=== PATIENT | female | born 1950 | race Two or more races ===

== ENCOUNTER 2024-05-29 12:41 | Inpatient (IN) | payer MEDICARE, OTHER ==
[~2024-05-29] VITALS: Ht 157.5 cm; Wt 67.1 kg
[2024-05-29] MEDS: IV NS 0.9% 1,000 ML BAG IV ONE (13:42)
[2024-05-29 13:46] LABS: CALCIUM, SERUM 9.5 mg/dL (8.5-10.1); CREATININE 0.8 mg/dL (0.6-1.3); POTASSIUM 4.1 mmol/L (3.5-5.1)
[2024-05-29 13:51] LABS: ALBUMIN 4.1 g/dL (3.4-5.0); BILIRUBIN,DIRECT 0.1 mg/dL (0.0-0.2); BILIRUBIN,TOTAL 0.5 mg/dL (0.2-1.0); TOTAL PROTEIN, SERUM 7.7 g/dL (6.4-8.2)
[2024-05-29 13:57] LABS: BASOPHILS % (AUTO) 0.4 % (0.0-2.0); EOSINOPHILS # (AUTO) 0.1 K/uL (0.0-0.7); EOSINOPHILS % (AUTO) 1.6 % (0.0-6.0); HEMATOCRIT 41 % (33-45); HEMOGLOBIN 14.2 g/dL (11.5-14.8); LYMPHOCYTES # (AUTO) 3.5 K/uL (0.8-4.8); LYMPHOCYTES % (AUTO) 52.1 % (20.0-44.0); MEAN CORPUSCULAR HEMOGLOBIN 32 PG (26.0-33.0); MEAN CORPUSCULAR HGB CONC 35 g/dl (31.0-36.0); MEAN CORPUSCULAR VOLUME 92 fL (82-100); MONOCYTES # (AUTO) 0.3 K/uL (0.1-1.30); NEUTROPHILS # (AUTO) 2.7 K/uL (1.8-8.9); NEUTROPHILS % (AUTO) 40.9 % (43.0-81.0); PLATELET COUNT (AUTO) 149 K/uL (150-450); RED BLOOD CELL COUNT(AUTO) 4.42 MIL/uL (4.0-5.2); RED CELL DISTRIBUTION WIDTH 14.1 % (11.5-15.0); WHITE BLOOD COUNT (AUTO) 6.7 K/uL (4.3-11.0)
[2024-05-29] MEDS ORDERED: KETOROLAC TROMETHAMINE 15 MG/ML VIAL ONE (14:35)
[2024-05-29] MEDS: KETOROLAC TROMETHAMINE 15 MG/ML VIAL IV ONE (14:39)
[2024-05-29 15:42] LABS: APPEARANCE,URINE CLEAR (CLEAR); BILIRUBIN,URINE NEGATIVE (NEGATIVE); BLOOD, URINE NEGATIVE Ery/uL (NEGATIVE); COLOR,URINE YELLOW (YELLOW); KETONES,URINE NEGATIVE (NEGATIVE); LEUKOCYTE ESTERASE ,URINE TRACE (NEGATIVE); NITRITE, URINE NEGATIVE (NEGATIVE); PH,URINE 6.5 (5.0-8.0); PROTEIN,URINE NEGATIVE (NEGATIVE); UGLUCOSE NEGATIVE (NEGATIVE); UROBILINOGEN,URINE 0.2 EU/dL (0.2)
[2024-05-29] MEDS ORDERED: ONDANSETRON HCL/PF 4 MG/2 ML VIAL IVP PRN (16:00)
[2024-05-29] MEDS ORDERED: MAGNESIUM HYDROXIDE 30 ML UDC PO PRN (16:00)
[2024-05-29] MEDS ORDERED: Z GUARD REMEDY 4 OZ OINT TP PRN (16:00)
[2024-05-29 16:43] LABS: ADD URINE CULTURE YES; BACTERIA,URINE Many /HPF (None Seen); SQUAMOUS EPITHELIAL CELL,UR Many /HPF (None Seen)
[2024-05-29 16:44] LABS: RBC,URINE 0-2 /HPF (0-2)
[2024-05-29] MEDS ORDERED: CEFTRIAXONE 1GM BAG (ER ONLY) 1 GM/50 ML PIGGYBACK IV ONE (17:30)
[2024-05-29] MEDS: CEFTRIAXONE 1 G in IV D5W 50 ML IV ONE (17:49)
[2024-05-29] MEDS ORDERED: LEVO88TA5 PO (18:49)
[2024-05-29] MEDS ORDERED: LORA-259 PO (18:49)
[2024-05-29] MEDS ORDERED: GABA300C PO (18:49)
[2024-05-29] MEDS ORDERED: RIBO400T PO (18:49)
[2024-05-29] MEDS ORDERED: DONE10TA44 PO (18:49)
[2024-05-29] MEDS ORDERED: MAGN400T26 PO (18:49)
[2024-05-29] MEDS ORDERED: BUPR-54 PO (18:49)
[2024-05-29] MEDS ORDERED: ATOR20TA PO (18:49)
[2024-05-29] MEDS ORDERED: DIVA125T32 PO (18:49)
[2024-05-29] MEDS ORDERED: SOLI10TA7 PO (18:49)
[2024-05-29 21:00] VITALS: BP 118/71; TEMP 97.7; O2SAT 98
[2024-05-29] MEDS: ACETAMINOPHEN 325 MG TABLET PO PRN (21:30)
[2024-05-30] MEDS: LORAZEPAM 1 MG TABLET PO PRN (02:16)
[2024-05-30 06:37] VITALS: BP 105/74; TEMP 97.3; O2SAT 98
[2024-05-30 06:58] LABS: BASOPHILS % (AUTO) 0.3 % (0.0-2.0); EOSINOPHILS # (AUTO) 0.1 K/uL (0.0-0.7); EOSINOPHILS % (AUTO) 2.4 % (0.0-6.0); HEMATOCRIT 37 % (33-45); HEMOGLOBIN 12.5 g/dL (11.5-14.8); LYMPHOCYTES # (AUTO) 2.4 K/uL (0.8-4.8); LYMPHOCYTES % (AUTO) 44.8 % (20.0-44.0); MEAN CORPUSCULAR HEMOGLOBIN 31 PG (26.0-33.0); MEAN CORPUSCULAR HGB CONC 34 g/dl (31.0-36.0); MEAN CORPUSCULAR VOLUME 92 fL (82-100); MONOCYTES # (AUTO) 0.4 K/uL (0.1-1.30); MONOCYTES % (AUTO) 6.8 % (2.0-12.0); NEUTROPHILS # (AUTO) 2.5 K/uL (1.8-8.9); NEUTROPHILS % (AUTO) 45.7 % (43.0-81.0); PLATELET COUNT (AUTO) 132 K/uL (150-450); RED BLOOD CELL COUNT(AUTO) 3.99 MIL/uL (4.0-5.2); RED CELL DISTRIBUTION WIDTH 13.8 % (11.5-15.0); WHITE BLOOD COUNT (AUTO) 5.4 K/uL (4.3-11.0)
[2024-05-30 07:10] LABS: CALCIUM, SERUM 9.4 mg/dL (8.5-10.1); CREATININE 0.8 mg/dL (0.6-1.3); MAGNESIUM 2.1 mg/dL (1.8-2.4); PHOSPHORUS 4.3 mg/dL (2.5-4.9); POTASSIUM 4.2 mmol/L (3.5-5.1)
[2024-05-30] MEDS: LEVOTHYROXINE SODIUM 88 MCG TABLET PO SCH (07:30)
[2024-05-30] MEDS ORDERED: CEFTRIAXONE 1 G in IV D5W 50 ML IV SCH (09:00)
[2024-05-30] MEDS ORDERED: Medication Not On Formulary EA (Riboflavin 400 MG) PO SCH (09:00)
[2024-05-30] MEDS: GABAPENTIN 300 MG CAPSULE PO SCH (09:39)
[2024-05-30] MEDS: MAGNESIUM OXIDE 400 MG TABLET PO SCH (09:39)
[2024-05-30] MEDS: BUPROPION XL 150 MG TAB.ER.24 PO SCH (09:39)
[2024-05-30] MEDS: DIVALPROEX SODIUM 125 MG TABLET.DR PO SCH (09:40)
[2024-05-30] MEDS: DONEPEZIL 5 MG TABLET PO SCH (09:40)
[2024-05-30 12:06] VITALS: BP 115/71; TEMP 98.1; O2SAT 98
[2024-05-30] MEDS: CEFTRIAXONE 1 G in IV D5W 50 ML IV SCH (16:29)
[2024-05-30] MEDS: MAG HYDROX/AL HYDROX/SIMETH 30 ML UDC PO PRN (16:29)
[2024-05-30 20:00] VITALS: BP 119/68; TEMP 97.3; O2SAT 98
[2024-05-30] MEDS: ATORVASTATIN 10 MG TABLET PO SCH (21:05)
[2024-05-30] MEDS ORDERED: SOLIFENACIN SUCCINATE 10 MG PO SCH (22:00)
[2024-05-31 04:00] VITALS: BP 107/76; TEMP 97.5; O2SAT 93
[2024-05-31 08:00] VITALS: BP 109/74; TEMP 97.5; O2SAT 96
[2024-05-31 12:00] VITALS: O2SAT 96
[2024-05-31 16:00] VITALS: BP 113/79; TEMP 97.6; O2SAT 97
[2024-05-31 20:00] VITALS: BP 116/61; TEMP 97.3; O2SAT 94
[2024-06-01 04:00] VITALS: BP 106/72; TEMP 97.3; O2SAT 96
[2024-06-01] MEDS: CEFTRIAXONE 1 G in IV D5W 50 ML IV SCH (11:03)
== END 2024-06-01 12:36 | DRG 689 ==
LOC: ER 12:45 → MEDSG1 19:45
PROVIDERS: ADMIT Internal Medicine; ATTEND Internal Medicine
DX: N39.0 Urinary tract infection, site not specified (principal); G93.41 Metabolic encephalopathy; F03.93 Unspecified dementia, unspecified severity, with mood disturbance; G91.9 Hydrocephalus, unspecified; R62.7 Adult failure to thrive; E86.0 Dehydration; F03.90 Unspecified dementia, unspecified severity, without behavioral disturbance, psychotic disturbance, mood disturbance, and anxiety; E03.9 Hypothyroidism, unspecified; F32.9 Major depressive disorder, single episode, unspecified; Z88.5 Allergy status to narcotic agent; Z88.6 Allergy status to analgesic agent; I10 Essential (primary) hypertension; B96.89 Other specified bacterial agents as the cause of diseases classified elsewhere
CPT/HCPCS: 36415; 80048-TC; 80076-TC; 81001; 83690-TC; 83735-TC; 84100-TC; 85025-TC; 87086-TC; 97110-TC; 97112-TC; 97116-TC; 97530-TC; A4223; G0378; J0696; J1885; J7030; J7060